=== PATIENT | male | born 1990 ===

== ENCOUNTER 2019-02-20 19:19 | Inpatient (IN) | payer SELFPAY ==
[2019-02-20 20:11] LABS: HEMOGLOBIN 15.1 g/dL (14.0-18.0); MEAN CELL VOLUME 93.8 fl (80.0-105.0); MEAN CORPUSCULAR HEMOGLOBIN 31.1 pg (25.0-35.0); MEAN CORPUSCULAR HGB CONC 33.1 g/dl (31.0-37.0); RBC 4.86 10^6/uL (3.5-6.1); RED CELL DISTRIBUTION WIDTH 15.7 % (11.5-14.5); WHITE BLOOD COUNT 11.8 10^3/uL (4.5-11.0)
[2019-02-20 20:27] LABS: ALB/GLOB RATIO 1.2 (1.1-1.8); ALBUMIN 4.4 g/dL (3.0-4.8); ALT/SGPT 90 U/L (7-56); AST/SGOT 69 U/L (17-59); BLOOD UREA NITROGEN 6 mg/dL (7-21); CALCIUM 9.7 mg/dL (8.4-10.5); GFR NON-AFRICAN AMERICAN > 60
--- NOTE | 2019-02-20 20:53 | ED PDOC ---
Arrival/HPI - General Chief Complaint: Psychiatric Evaluation Time Seen by Provider: 02/20/19 19:20 Historian: Patient - History of Present Illness Narrative History of Present Illness (Text): 02/20/19 19:50 A 28 year old male, whose past medical history includes asthma, presents to the emergency department complaining of feeling emotionally distressed over family issues and other personal issues of which the patient would not elaborate. Patient reports his neighbor knows of his issues and does not understand how they became aware of them. As per collateral information, patient states he is apparently hearing voices although he now denies any drug or alcohol abuse. Patient denies any suicidal ideation, homicidal ideation, any somatic complaints or any other complaints. No PMD Time/Duration: 24 hours Symptom Onset: Gradual Symptom Course: Unchanged Activities at Onset: Light Context: Home Past Medical History - Provider Review Nursing Documentation Reviewed: Yes - Infectious Disease Hx of Infectious Diseases: None - Cardiac Hx Cardiac Disorders: No - Pulmonary Hx Respiratory Disorders: Yes Hx Asthma: Yes - Neurological Hx Neurological Disorder: No - HEENT Hx HEENT Disorder: No - Renal Hx Renal Disorder: No - Endocrine/Metabolic Hx Endocrine Disorders: No - Hematological/Oncological Hx Blood Disorders: No - Integumentary Hx Dermatological Disorder: No - Musculoskeletal/Rheumatological Hx Musculoskeletal Disorders: No - Gastrointestinal Hx Gastrointestinal Disorders: No - Genitourinary/Gynecological Hx Genitourinary Disorders: No - Psychiatric Hx Psychophysiologic Disorder: No Hx Substance Use: No - Anesthesia Hx Anesthesia: No Family/Social History - Physician Review Nursing Documentation Reviewed: Yes Family/Social History: No Known Family HX Smoking Status: Never Smoked Hx Alcohol Use: No Hx Substance Use: No Allergies/Home Meds Allergies/Adverse Reactions: Allergies No Known Allergies Allergy (Verified 02/20/19 19:27) Home Medications: Home Meds Medication Instructions Recorded Confirmed Albuterol HFA [Ventolin HFA 90 2 puff INH DAILY 02/20/19 02/20/19 mcg/actuation (8 g)] Review of Systems - Physician Review All systems were reviewed & negative as marked: Yes - Review of Systems Psychiatric: absent: Suicidal Ideation, Other (no homocidal ideation) Physical Exam Vital Signs Reviewed: Yes Temperature: Afebrile Blood Pressure: Normal Pulse: Regular Respiratory Rate: Normal Mental Status: Positive for: Alert and Oriented X 3 - Systems Exam Head: Present: Atraumatic, Normocephalic Pupils: Present: PERRL Extroacular Muscles: Present: EOMI Conjunctiva: Present: Normal Respiratory/Chest: Present: Clear to Auscultation, Good Air Exchange. No: Respiratory Distress, Accessory Muscle Use Cardiovascular: Present: Regular Rate and Rhythm, Normal S1, S2. No: Murmurs Abdomen: No: Tenderness, Distention, Peritoneal Signs Upper Extremity: Present: Normal Inspection. No: Cyanosis, Edema Lower Extremity: Present: Normal Inspection. No: Edema Neurological: Present: GCS=15, CN II-XII Intact, Speech Normal Skin: Present: Warm, Dry, Normal Color. No: Rashes Psychiatric: Present: Alert, Oriented x 3, Other (flat affect) Medical Decision Making ED Course and Treatment: 02/20/19 19:50 Impression: 28 year old male presenting to the emergency room complaining of feeling emotionally distressed over family issues. Plan: -- EKG -- Drug screen -- Chest X-ray -- Reassess and disposition Prior Visits: Notes and results from previous visits were reviewed. Progress Notes: 02/20/19 21:07 EKG: Ordered, reviewed, and independently interpreted the EKG. Rate : 80 BPM Rhythm : NSR Interpretation : No ST-T wave changes. 02/20/19 21:11 Chest X-ray reviewed by me, shows no acute distress. 02/20/19 23:58 Patient seen and evaluated by PES/for admission psychiatry . - Lab Interpretations Lab Results: Total Bilirubin 0.5 mg/dL (0.2-1.3) 02/20/19 20:00 AST 69 U/L (17-59) H 02/20/19 20:00 ALT 90 U/L (7-56) H 02/20/19 20:00 Alkaline Phosphatase 102 U/L (38-126) 02/20/19 20:00 Total Protein 7.9 g/dL (5.8-8.3) 02/20/19 20:00 Albumin 4.4 g/dL (3.0-4.8) 02/20/19 20:00 Globulin 3.5 gm/dL 02/20/19 20:00 Albumin/Globulin Ratio 1.2 (1.1-1.8) 02/20/19 20:00 - RAD Interpretation Radiology Orders: 02/20/19 19:44 CHEST PORTABLE [RAD] Stat - Scribe Statement The provider has reviewed the documentation as recorded by the Jie Kraft All medical record entries made by the Scribe were at my direction and personally dictated by me. I have reviewed the chart and agree that the record accurately reflects my personal performance of the history, physical exam, medical decision making, and the department course for this patient. I have also personally directed, reviewed, and agree with the discharge instructions and disposition. Disposition/Present on Arrival - Present on Arrival Any Indicators Present on Arrival: No History of DVT/PE: No History of Uncontrolled Diabetes: No Urinary Catheter: No History of Decub. Ulcer: No History Surgical Site Infection Following: None - Disposition Have Diagnosis and Disposition been Completed?: Yes Diagnosis: Schizoaffective disorder Disposition: HOSPITALIZED Disposition Time: 23:58 Condition: STABLE Referrals: PCP,NO [Primary Care Provider] - Follow up with primary Forms: [employer] (Korean)
[2019-02-20 21:32] LABS: BARBITURATES, UR NEGATIVE (NEGATIVE); BENZODIAZEPINES, UR NEGATIVE (NEGATIVE); OPIATES, UR NEGATIVE (NEGATIVE); PHENCYCLIDINE, UR NEGATIVE (NEGATIVE)
[2019-02-21] MEDS ORDERED: Alum-Mag Hydrox-Simethicone Susp (30 mL) PO PRN (01:12)
[2019-02-21] MEDS ORDERED: Magnesium Hydroxide Susp 30 ml UD PO PRN (01:12)
--- NOTE | 2019-02-21 01:33 | PCM.BM ---
<Momo Roberts - Last Filed: 02/21/19 01:29> Treatment Plan Problems - Problems identified on initial assessmt Altered thought process Date Initiated: 02/21/19 Time Initiated: 01:30 Assessment reference: NA Status: Active Auditory Hallucinations Date Initiated: 02/21/19 Time Initiated: 01:30 Assessment reference: NA Status: Active Ineffective coping Date Initiated: 02/21/19 Time Initiated: 01:31 Assessment reference: NA Status: Active Treatment assets and liabiliti Patient Assests: adapts well, cooperative, educated, ADL independent, physically healthy, financial stabiity Patient Liabilities: live alone, relationship conflicts, substance abuse - Milieu Protocol Maintain good personal hygiene: daily Encourage regular showers, daily Remind patient to perform daily oral care Conduct patient checks and document Observation sheet: Q15 minutes Maintain personal safety: every shift Educate patient to report safety concerns to staff, every shift Monitor environment for contraband/sharps Medication safety: Monitor for expected outcome, potential side effects: every shift, Assess barriers to learning: every shift, Assess readiness for medication education: every shift Family Contact Family involvement: Patient does not wish Family/SO involvement Discharge/Continuing Care - Education Needs Education Needs: Family Medication, Family Diagnosis/Disease Process, Family Coping Skills, Family Anger Management skills, Family Community resources, Family Aftercare Safety Plan - Discharge Discharge Criteria: Tolerates medication w/o severe side effects, Free of paranoid thoughts, Free of agitation, Normal sleep pattern, Reduction of target symptoms Discharge to:: Home <Carol Valdivia - Last Filed: 02/21/19 14:12> - Diagnosis (1) Unspecified psychosis Status: Acute Interventions: 02/21/19 14:12 Psychoeducation/psychotherapy Psychopharmacology/adjustment of medications as needed/ monitoring possible side effects Evaluate pt on daily basis Compliance with medications and follow up appointments Long acting medication if pt is noncompliant with pill form Suicide and homicide risk assessment and prevention, coping strategies, safety plan Relapse prevention Reduction of symptoms Improve functional status Possible assertive community treatment Cognitive behavioral therapy Family involvement Possible social skill training as outpatient (2) Cannabis abuse Status: Acute Interventions: 02/21/19 14:13 Maintaining sobriety Motivational interviewing Psychoeducation <Eveline Ramsey - Last Filed: 04/03/19 17:28> Family Contact Family involvement: Family/SO is involved Family contact: Patient agrees to contact Family contact name: Elaine Day(sister) Family contacted how many times per week?: 2
[2019-02-21 02:02] VITALS: O2SAT 100
[2019-02-21 03:24] VITALS: BMI 41.1
[2019-02-21 07:19] VITALS: RESP 20
[2019-02-21 08:09] LABS: GLUCOSE,FASTING 108 mg/dL (65-110); HDL CHOLESTEROL 42 mg/dL (29-60)
[2019-02-21 08:20] LABS: LDL CHOLESTEROL 88 mg/dL (0-129)
--- NOTE | 2019-02-21 09:51 | RAD ---
Date of service: 02/20/2019 HISTORY: medical clearance COMPARISON: Are FINDINGS: LUNGS: The lungs are well inflated and clear. PLEURA: No pleural effusions or pneumothorax. CARDIOVASCULAR: The heart is normal in size. No aortic atherosclerotic calcifications present. OSSEOUS STRUCTURES: Within normal limits for the patient's age. VISUALIZED UPPER ABDOMEN: Normal. OTHER FINDINGS: None. IMPRESSION: No active pulmonary disease.
--- NOTE | 2019-02-21 14:12 | PCM.PSYCH ---
Initial Psychiatric Evaluation - Initial Psychiatric Evaluation Type of Admission: Voluntary Legal Status: Capacity Chief Complaint (in patient's own words): "My girlfriend did not want me to be her from her job, my sister wants to keep me in her house, they put these 2 things together and I thought it is weird, I went to check up on my girlfriend, 4police officers showed up and asked me did I see CRAZY BOYFRIEND, they didn't realize that they are looking for me, night before I was freaking out about my neighbours, they were talking about me, they know my personal business, they know about my sex life, they know about me, it is crazy..." Patient's Reaction to Hospitalization: Patient taken patient for evaluation and stabilization of paranoia, psychosis, inability to function. History of Present Illness and Precipitating Events: Shortly patient is a 28 year old male, with not known previous psychiatric h istory, patient has not known history of psychiatric evaluation/admissions/suicidal attempts, past medical history includes asthma, was brought in by police after patient's family called 911 stating that patient is acting rationally, paranoid, and feeling emotionally distressed emergency room patient presents to be guarded/paranoid, psychotic, patient signed for voluntary admission only because he was afraid that he would be arrested by police. Patient obviously required further evaluation and stabilization in psychiatric inpatient unit. Patient was seen and examined today at the treatment team meeting, patient presented to be suspicious, guarded and paranoid, keeps looking at his back, pa tient seems to be anxious about surroundings, pt presented with good personal hygiene, good ADLs. Based on the report from the dental sales representative, pt was guarded, refused to take medications, pt was nursing staff pt was distressed and believed that his new neighbors can hear everything they are doing in their apartment stated the"paul are very thin". Patient even stated that they can tell about their"SEXUAL" activities through the paul, feeling that his neighbours are talking about him. Patient was medications but patient refused to take any medications. In ED PES spoke to pt's sister Ms. Day, who expressed concerns that student presented as paranoid and called her last night stating that the neighbors were listening in on him and knew information about his sex life. She reported that today he told her the feds were following him and that the police and someone in [facility] is also following him. She explained that he also told her that his girlfriend is also cheating on him. She explained she is concerned because these are new behaviors. She reported that his girlfriend stated that he took a black pill last night but is unsure what that pill is. During this further evaluation patient presented to be guarded, paranoid, patient said that "everything started right after new neighbors", patient re ports that the night prior to this admission pt heard neighbours talking about him "it is very thin", patient reported that "they know everything about me, my personal life, my sex life, it is crazy" patient reported that she did not confront his neighbors, she did not initiate any fights, but was feeling "very uncomfortable, probably I need to move out from that place", patient reported yesterday he offered his girlfriend to pick her up from work but she refused, then patient said he had a dinner in his sister house "she wanted me to stay there to finish the dinner, but I thought it is suspicious..., I put two things together and I rushed to meet with my girlfriend, while I was waiting for her, 4 police officers knocked on my window asking did I see CRAZY BOYFRIEND, they did not realized that they were looking for me.." Patient presented with delusions, paranoia, circumstantial and tangential thought process. On top of the patient has very poor insight, truly believe that people are monitoring him, his girlfriend is cheating on him, neighbors talking about him through paul as well as floor. Patient reports 2 weeks ago she is causing unexpectedly at the age of 38, "we all were devastated, everybody was very depressed and sad." Patient denied ever been abused in his life. Patient reported that he smokes marijuana "very very rarely", refused to tell how often. pt reports smoking about 7 cigarettes a day. Nicotine patch was offered but patient refused. pt denied any drug use, reported that he took "black pill with an animal on "male enhance", pt reported to take the same pill three times recently "over the counter." Patient did not want to get permission to talk to his family about the reluctantly agreed to speak to the sister. It took long for the patient was signed the treatment plan. Patient refused to be on any medications, patient was crying hysterically "my life is over, I am not crazy." Patient denied thoughts of harming himself or others, denies intent or plan. This health underwriter offered patient medications, education about psychosis provided, patient was not receptive. History: Patient denied any psychiatric history, denies history of suicidal attempts. Medical history: History of asthma. Social history: Patient works, stable relationship with his girlfriend. Family history: Patient reports "all of my family are kind of off..." 02/20/19 20:00 02/20/19 20:00 Lab Results 02/21/19 07:30: TSH 3rd Generation 0.72 02/21/19 07:30: Fasting Glucose 108, Triglycerides 51, Cholesterol 141, LDL Cholesterol Direct 88, HDL Cholesterol 42 02/20/19 20:45: Urine Opiates Screen Negative, Urine Methadone Screen Negative, Ur Barbiturates Screen Negative, Ur Phencyclidine Scrn Negative, Ur Amphetamines Screen Negative, U Benzodiazepines Scrn Negative, U Oth Cocaine Metabols Negative, U Cannabinoids Screen Positive H 02/20/19 20:00: Alcohol, Quantitative < 10 02/20/19 20:00: WBC 11.8 H, RBC 4.86, Hgb 15.1, Hct 45.6, MCV 93.8, MCH 31.1, MCHC 33.1, RDW 15.7 H, Plt Count 325, MPV 10.0 02/20/19 20:00: Sodium 142, Potassium 3.6, Chloride 105, Carbon Dioxide 26, Anion Gap 15, BUN 6 L, Creatinine 0.9, Est GFR ( Amer) > 60, Est GFR (Non-Af Amer) > 60, Random Glucose 115 H, Calcium 9.7, Total Bilirubin 0.5, AST 69 H, ALT 90 H, Alkaline Phosphatase 102, Total Protein 7.9, Albumin 4.4, Globulin 3.5, Albumin/Globulin Ratio 1.2 Vital Signs Temp Pulse Pulse Resp BP Pulse Ox 02/21/19 07:18 98.7 F 116 H 20 142/92 H 02/21/19 02:01 98.5 F 71 18 130/81 100 02/21/19 01:40 71 18 02/21/19 00:25 98.2 F 77 18 132/78 98 02/21/19 00:23 98.2 F 77 18 132/78 98 02/20/19 20:45 98.3 F 72 20 130/70 100 The patient failed the outpatient lower level of care: Yes Current Medications: Active Medications Generic Name Dose Route Start Last Admin Trade Name Freq PRN Reason Stop Dose Admin Acetaminophen 650 mg 02/21/19 01:12 Tylenol 325mg Tab PO Q6H PRN Fever >100.4 F Al Hydrox/Mg Hydrox/Simethicone 30 ml 02/21/19 01:12 Maalox Plus 30 Ml PO DAILY PRN Upset Stomach Lorazepam 2 mg 02/21/19 01:12 Ativan PO Q6H PRN Anxiety Protocol Lorazepam 2 mg 02/21/19 01:13 Ativan IM Q6H PRN Anxiety Protocol Magnesium Hydroxide 30 ml 02/21/19 01:12 Milk Of Magnesia PO DAILY PRN Constipation Zaleplon 5 mg 02/21/19 01:15 Sonata PO HS PRN Insomnia Ziprasidone 20 mg 02/21/19 01:12 Geodon Cap PO Q6H PRN Agitation Protocol Ziprasidone 20 mg 02/21/19 01:14 Geodon Inj IM Q6 PRN Agitation Protocol Present on Admission - Present on Admission Any Indicators Present on Admission: No Review of Systems - Review of Systems Systems not reviewed;Unavailable: Acuity of Condition - Constitutional Constitutional: As Per HPI - EENT Eyes: As Per HPI Ears: As Per HPI Nose/Mouth/Throat: As Per HPI - Cardiovascular Cardiovascular: As Per HPI - Respiratory Respiratory: As Per HPI - Gastrointestinal Gastrointestinal: As Per HPI - Genitourinary Genitourinary: As Per HPI - Reproductive: Male Reproductive:Male: As Per HPI - Musculoskeletal Musculoskeletal: As Per HPI - Integumentary Integumentary: As Per HPI - Neurological Neurological: As Per HPI - Psychiatric Psychiatric: As Per HPI - Endocrine Endocrine: As Per HPI - Hematologic/Lymphatic Hematologic: As Per HPI Past Patient History - Past Psychiatric History Previous Treatment History: None Prior Professional Help: See HPI Prior Psychiatric Treatment: See HPI At what hospital: See HPI Duration: See HPI Nature of Treatment: See HPI Explanation of prior treatment: See HPI - PSYCHIATRIC Hx Psychophysiologic Disorder: No Hx Substance Use: Yes (marijuana) - Infectious Disease Hx of Infectious Diseases: None - CARDIAC Hx Cardiac Disorders: No - PULMONARY Hx Respiratory Disorders: Yes Hx Asthma: Yes - NEUROLOGICAL Hx Neurological Disorder: No - HEENT Hx HEENT Problems: No - RENAL Hx Chronic Kidney Disease: No - ENDOCRINE/METABOLIC Hx Endocrine Disorders: No - HEMATOLOGICAL/ONCOLOGICAL Hx Blood Disorders: No - INTEGUMENTARY Hx Dermatological Problems: No - MUSCULOSKELETAL/RHEUMATOLOGICAL Hx Musculoskeletal Disorders: No - GASTROINTESTINAL Hx Gastrointestinal Disorders: No - GENITOURINARY/GYNECOLOGICAL Hx Genitourinary Disorders: No - SURGICAL HISTORY Hx Surgeries: No - ANESTHESIA Hx Anesthesia: No - Medical/Surgical History Reviewed & confirmed: by ut Meds Allergies/Adverse Reactions: Allergies Allergy/AdvReac Type Severity Reaction Status Date / Time No Known Allergies Allergy Verified 02/21/19 01:18 Mental Status Examination - Personal Presentation Personal Presentation: Looks older than stated age - Affect Affect: Constricted (Irritable and angry), Flat - Motor Activity Motor Activity: Other (Patient presented to be on edge ) - Reliability in Providing Information Reliability in Providing Information: Fair - Speech Speech: Disorganized, Tangential - Mood Mood: Depressed, Anxious - Formal Thought Process Formal Thought Process: Hallucinations, Delusions, Paranoia, Circumstantial - Hallucinations/Delusions Delusions: Persecution - Obsessions/Compulsions Obsessions: None Compulsions: None - Cognitive Functions Orientation: Person, Place, Situation, Time Attention/Concentration: Easily distracted Estimate of Intelligence: Average Judgement: Imparied, as evidence by: Poor judgement, Imparied, as evidence by: Lack of insight into illness - Risk Risk: Diminished functioning - Strength & Assets Inventory Strength & Assets Inventory: Intelligence, Family support, Employment history, Cooperative - Limitations Limitations: Other (Psychosis, poor insight into his mental illness) Psychiatric Physical Exam - Physical Exam Reviewed and confirmed: Emergency Department Physical Exam Results - Vital Signs Recent Vital Signs: Last Vital Signs Temp 98.7 F 02/21/19 07:18 Pulse 116 H 02/21/19 07:18 Resp 20 02/21/19 07:18 BP 142/92 H 02/21/19 07:18 Pulse Ox 100 02/21/19 02:01 - Labs Result Diagrams: 02/20/19 20:00 02/20/19 20:00 Labs: Laboratory Results - last 24 hr 02/20/19 02/20/19 02/20/19 20:00 20:00 20:00 WBC 11.8 H RBC 4.86 Hgb 15.1 Hct 45.6 MCV 93.8 MCH 31.1 MCHC 33.1 RDW 15.7 H Plt Count 325 MPV 10.0 Sodium 142 Potassium 3.6 Chloride 105 Carbon Dioxide 26 Anion Gap 15 BUN 6 L Creatinine 0.9 Est GFR ( Amer) > 60 Est GFR (Non-Af Amer) > 60 Random Glucose 115 H Fasting Glucose Calcium 9.7 Total Bilirubin 0.5 AST 69 H ALT 90 H Alkaline Phosphatase 102 Total Protein 7.9 Albumin 4.4 Globulin 3.5 Albumin/Globulin Ratio 1.2 Triglycerides Cholesterol LDL Cholesterol Direct HDL Cholesterol TSH 3rd Generation Urine Opiates Screen Urine Methadone Screen Ur Barbiturates Screen Ur Phencyclidine Scrn Ur Amphetamines Screen U Benzodiazepines Scrn U Oth Cocaine Metabols U Cannabinoids Screen Alcohol, Quantitative < 10 02/20/19 02/21/19 02/21/19 20:45 07:30 07:30 WBC RBC Hgb Hct MCV MCH MCHC RDW Plt Count MPV Sodium Potassium Chloride Carbon Dioxide Anion Gap BUN Creatinine Est GFR ( Amer) Est GFR (Non-Af Amer) Random Glucose Fasting Glucose 108 Calcium Total Bilirubin AST ALT Alkaline Phosphatase Total Protein Albumin Globulin Albumin/Globulin Ratio Triglycerides 51 Cholesterol 141 LDL Cholesterol Direct 88 HDL Cholesterol 42 TSH 3rd Generation 0.72 Urine Opiates Screen Negative Urine Methadone Screen Negative Ur Barbiturates Screen Negative Ur Phencyclidine Scrn Negative Ur Amphetamines Screen Negative U Benzodiazepines Scrn Negative U Oth Cocaine Metabols Negative U Cannabinoids Screen Positive H Alcohol, Quantitative - EKG Data EKG Interpreted by: ER Physician DSM Plan - DSM 5 DSM 5 Diagnosis: Psychosis NOS Brief psychotic disorder Rule out first break of schizophrenia Substance induced psychosis Cannabis abuse Rule out major depressive disorder with psychosis - Recommended/Plan of Treatment Treatment Recommendations and Plan of Treatment: Milieu/structure/supportive therapy SW consultation for discharge plan and social issues Med management: As below 0.5 mg twice a day for psychosis So mother is needed for insomnia As needed medication Geodon plus Ativan Patient submitted 48-hour notice, requesting discharge, based on current presentation patient requires screening by [facility] for [facility] commitment Family involvement Follow up on labs Will monitor closely Pt was educated about risk/benefits and alternatives of medications, coping strategies (safety plan, suicide prevention), relapse prevention, importance of follow up with psychiatrist and therapist, stay away from drugs/alcohol/smoking Projected ELOS: 7 days Prognosis: Guarded Discharge Plan and Discharge Criteria: Patient will be less psychotic, improved insight into his mental illness, no suicidal or homicidal ideations, will be able to function - Tobacco Cessation Tobacco Use Status for the last 30 days: Heavy User(>=5 cigs &/or cigars/pipes daily) Tobacco Use Treatment Practical Counseling Provided: No Reason for not providing: Patient refused tobacco cessation medication - Alcohol or Substance Abuse Does the patient have an Alcohol or Substance Abuse Disorder: Yes Initial Psych Certification - Initial Certification I certify that the inpatient psychiatric facility admission was medically necessary for either: Treatment which could reasonbly be expected to improve pt's condition I estimate of hospitalization is necessary for proper treatment of the patient: 7 Unit of Time: Days My plans for post-hospital care for this patient are: Follow-up with psychiatrist, therapist, medication management.
[2019-02-21 16:51] LABS: URINE APPEARANCE CLEAR (CLEAR); URINE BILIRUBIN NEGATIVE (NEGATIVE); URINE BLOOD NEGATIVE (NEGATIVE); URINE COLOR LIGHT YELLOW (YELLOW); URINE GLUCOSE (UA) NEGATIVE (NEGATIVE); URINE LEUKOCYTE ESTERASE NEGATIVE Leu/uL (NEGATIVE); URINE PROTEIN NEGATIVE mg/dL (<30 mg/dL); URINE UROBILINOGEN 0.2 E.U./dL (<1 E.U./dL)
--- NOTE | 2019-02-21 22:39 | CARD ---
APPROVED REPORT Date of service: 02/20/2019 EKG Measurement Heart [id number] <Conclusion> Normal sinus rhythm with sinus arrhythmia Moderate voltage criteria for LVH, may be normal variant ST abnormalities- minor Abnormal ECG
--- NOTE | 2019-02-22 15:25 | PCM.PYCHPN ---
Psychiatric Progress Note - Psychiatric Progress Note Patient seen today, length of contact: 45min Patient Chief Complaint: "I found out that my girlfriend cheating on me, I heard my coworkers were talking to me from the closet..." Problems Identified/Issues Discussed: Patient was educated on regulations, about his right distal next 48-hour notice, about to [facility] screening process, patient also was educated about risk, benefits, alternatives of all medications, education about psychosis, necessity of staying in the hospital and complete the treatment. Medical Problems: Patient has history of asthma. Diagnostic Results: 02/20/19 20:00 02/20/19 20:00 Lab Results 02/21/19 16:38: Urine Color Light yellow, Urine Appearance Clear, Urine pH 6.0, Ur Specific [place] <= 1.005, Urine Protein Negative, Urine Glucose (UA) Negative, Urine Ketones 40 H, Urine Blood Negative, Urine Nitrate Negative, Urine Bilirubin Negative, Urine Urobilinogen 0.2, Ur Leukocyte Esterase Negative 02/21/19 07:30: RPR Nonreactive 02/21/19 07:30: TSH 3rd Generation 0.72 02/21/19 07:30: Fasting Glucose 108, Triglycerides 51, Cholesterol 141, LDL Cholesterol Direct 88, HDL Cholesterol 42 02/20/19 20:45: Urine Opiates Screen Negative, Urine Methadone Screen Negative, Ur Barbiturates Screen Negative, Ur Phencyclidine Scrn Negative, Ur Amphetamines Screen Negative, U Benzodiazepines Scrn Negative, U Oth Cocaine Metabols Negative, U Cannabinoids Screen Positive H 02/20/19 20:00: Alcohol, Quantitative < 10 02/20/19 20:00: WBC 11.8 H, RBC 4.86, Hgb 15.1, Hct 45.6, MCV 93.8, MCH 31.1, MCHC 33.1, RDW 15.7 H, Plt Count 325, MPV 10.0 02/20/19 20:00: Sodium 142, Potassium 3.6, Chloride 105, Carbon Dioxide 26, Anion Gap 15, BUN 6 L, Creatinine 0.9, Est GFR ( Amer) > 60, Est GFR (Non-Af Amer) > 60, Random Glucose 115 H, Calcium 9.7, Total Bilirubin 0.5, AST 69 H, ALT 90 H, Alkaline Phosphatase 102, Total Protein 7.9, Albumin 4.4, Globulin 3.5, Albumin/Globulin Ratio 1.2 Vital Signs Temp Pulse Pulse Resp BP Pulse Ox 02/22/19 07:15 98.1 F 92 H 20 137/90 02/21/19 15:00 76 131/88 02/21/19 07:18 98.7 F 116 H 20 142/92 H 02/21/19 02:01 98.5 F 71 18 130/81 100 02/21/19 01:40 71 18 02/21/19 00:25 98.2 F 77 18 132/78 98 02/21/19 00:23 98.2 F 77 18 132/78 98 02/20/19 20:45 98.3 F 72 20 130/70 100 DSM 5 Symptoms Update: Shortly patient is a 28 year old male, with not known previous psychiatric history, patient has not known history of psychiatric evaluation/admissi ons/suicidal attempts, past medical history includes asthma, was brought in by police after patient's family called 911 stating that patient is acting rationally, paranoid, and feeling emotionally distressed emergency room patient presents to be guarded/paranoid, psychotic, patient signed for voluntary admission only because he was afraid that he would be arrested by police. Patient obviously required further evaluation and stabilization in psychiatric inpatient unit. Patient submitted 48-hour notice 02/21 2019, [facility] is [facility] was initiated, screen michel found patient today and not committable, at the same time screen there and did not have a chance to reach out for family because family did not pick up and delivery driver phone. Based on reports from the nursing staff patient is still paranoid, acting on his paranoia, while Dr. Aggarwal was in the treatment team meeting with other patient, was convinced that the treatment team was about him and people are talking badly about the same. Based on mental health worker collateral information during visit there is hours yesterday 02/21/2019, patient was in distress, saying that he is hearing voices from the closet, patient is convinced that his girlfriend is cheating on him, there is no evidence for that. Earlier today patient was threatening to call joinery machinist and that this publicity writer is obligated to discharge him as fast as possible. This publicity writer contacted patient's sister Elaine, patient gave written consent, cell phone #[phone]. As per Elaine patient was paranoid yesterday, pt was convinced that people are after him, pt also was hearing voices, pt's sister does not fill pt is in right stage of mind now. Patient was seen today at the treatment team meeting room with associate director finance, mental health worker, this publicity writer. After detailed explanation of treatment plan, medication offered, risk/benefits/alternatives of the medication discussed in details. patient also was educated about second screening, patient agreed to stay in the hospital and complete the treatment. Patient rescinded 48-hour notice, will include staying in the hospital for further observation, stabilization, medication management. As per nursing report patient start taking medications, compliant with unit rules and regulations. 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 Mental Status Examination - Cognitive Function Orientation: Person, Place, Situation, Time Memory: Intact Attention: Poor Concentration: Poor Association: Loose Fund of Knowledge: WNL - Mood Mood: Depressed, Anxious - Affect Affect: Constricted (Irritable and angry), Flat - Formal Thought Process Formal Thought Process: Hallucinations, Delusions, Paranoia, Loosening of associations, Circumstantial - Suicidal Ideation Suicidal Ideation: No - Homicidal Ideation Homicidal Ideation: No Goal/Treatment Plan - Goal/Treatment Plan Need for Continued Stay: Remain at risks for inpatient hospitalization, Severe depression anxiety, Discharge may exacerbated symptoms, Severe functional impairment Progress Toward Problem(s) and Goals/Treatment Plan: Milieu/structure/supportive therapy SW consultation for discharge plan and social issues Med management: Risperdal 0.5 mg 3 times a day for psychosis Cogentin 0.5 mg twice a day for EPS sonata 5mg po as needed for insomnia As needed medication Geodon plus Ativan Patient rescinded 48-hour notice, willing to stay in the hospital Family involvement Follow up on labs Will monitor closely Pt was educated about risk/benefits and alternatives of medications, coping strategies (safety plan, suicide prevention), relapse prevention, importance of follow up with psychiatrist and therapist, stay away from drugs/alcohol/smoking Estimated Date of D/C: 03/01/19
--- NOTE | 2019-02-23 14:34 | PCM.PYCHPN ---
Psychiatric Progress Note - Psychiatric Progress Note Patient seen today, length of contact: 45min Patient Chief Complaint: "I know that I am right, what I need to do in order to prove you that you need to let me go...?" Problems Identified/Issues Discussed: Patient was educated about unit rules and regulations, about his right to submit 48-hour notice, about to [facility] screening process, patient also was educated about risk, benefits, alternatives of all medications, education about psychosis, necessity of staying in the hospital and complete the treatment. Medical Problems: Patient has history of asthma. Diagnostic Results: 02/20/19 20:00 02/20/19 20:00 Lab Results 02/21/19 16:38: Urine Color Light yellow, Urine Appearance Clear, Urine pH 6.0, Ur Specific [place] <= 1.005, Urine Protein Negative, Urine Glucose (UA) Negative, Urine Ketones 40 H, Urine Blood Negative, Urine Nitrate Negative, Urine Bilirubin Negative, Urine Urobilinogen 0.2, Ur Leukocyte Esterase Negative 02/21/19 07:30: RPR Nonreactive 02/21/19 07:30: TSH 3rd Generation 0.72 02/21/19 07:30: Fasting Glucose 108, Triglycerides 51, Cholesterol 141, LDL Cholesterol Direct 88, HDL Cholesterol 42 02/20/19 20:45: Urine Opiates Screen Negative, Urine Methadone Screen Negative, Ur Barbiturates Screen Negative, Ur Phencyclidine Scrn Negative, Ur Amphetamines Screen Negative, U Benzodiazepines Scrn Negative, U Oth Cocaine Metabols Negative, U Cannabinoids Screen Positive H 02/20/19 20:00: Alcohol, Quantitative < 10 02/20/19 20:00: WBC 11.8 H, RBC 4.86, Hgb 15.1, Hct 45.6, MCV 93.8, MCH 31.1, MCHC 33.1, RDW 15.7 H, Plt Count 325, MPV 10.0 02/20/19 20:00: Sodium 142, Potassium 3.6, Chloride 105, Carbon Dioxide 26, Anion Gap 15, BUN 6 L, Creatinine 0.9, Est GFR ( Amer) > 60, Est GFR (Non-Af Amer) > 60, Random Glucose 115 H, Calcium 9.7, Total Bilirubin 0.5, AST 69 H, ALT 90 H, Alkaline Phosphatase 102, Total Protein 7.9, Albumin 4.4, Globulin 3.5, Albumin/Globulin Ratio 1.2 Vital Signs Temp Pulse Pulse Resp BP Pulse Ox 02/22/19 07:15 98.1 F 92 H 20 137/90 02/21/19 15:00 76 131/88 02/21/19 07:18 98.7 F 116 H 20 142/92 H 02/21/19 02:01 98.5 F 71 18 130/81 100 02/21/19 01:40 71 18 02/21/19 00:25 98.2 F 77 18 132/78 98 02/21/19 00:23 98.2 F 77 18 132/78 98 02/20/19 20:45 98.3 F 72 20 130/70 100 DSM 5 Symptoms Update: Shortly patient is a 28 year old male, with not known previous psychiatric history, patient has not known history of psychiatric evaluation/ad missions/suicidal attempts, past medical history includes asthma, was brought in by police after patient's family called 911 stating that patient is acting rationally, paranoid, and feeling emotionally distressed emergency room patient presents to be guarded/paranoid, psychotic, patient signed for voluntary admission only because he was afraid that he would be arrested by police. Patient obviously required further evaluation and stabilization in psychiatric inpatient unit. Patient submitted 48-hour notice 02/21/2019, [facility] screening process was initiated, screener found patient not committable, at the same time screener did not reached out for family because family did not strip picker phone. Patient rescinded 48 hr notice only because he did not want to be transferred to [facility] (formerly [facility] Patient was compliant with the medication for the past 24 hours. Patient was seen today at the treatment team meeting, patient presented the same way, patient is delusional, paranoid, patient has very poor insight into psychosis, convinced that his girlfriend was cheating on him (no evidence for that), patient also was convinced that she passed underwear which belongs to her new lover (no evidence patient tolerated his medications well, no side effects that, moreover pt's sisters brought clothing and underwear yesterday, pt still convinced that he was able to hear voices of his neighbours talking about his sex life. Yesterday patient was threatening to call chief dispatcher service and that this senior writer is obligated to discharge him as fast as possible. This senior writer contacted patient's sister Elaine02/22/19, patient gave written consent, cell phone #[phone]. As per Elaine patient was paranoid, pt was convinced that people are after him, pt also was hearing voices, pt's sister does not fill pt is in right stage of mind now. As per nursing report patient start taking medications, compliant with unit rules and regulations. So far patient tolerates medications well, no side effects observed or reported, claims 0, no EPS. Impression: Psychosis NOS Brief psychotic disorder Late onset of schizophrenia Substance induced psychosis Marijuana abuse Major depressive disorder with psychosis Medication Change: Yes (Risperdal increased) Medical Record Reviewed: Yes Consults ordered or reviewed: Patient is healthy, was seen by medical team in the emergency room. Mental Status Examination - Cognitive Function Orientation: Person, Place, Situation, Time Memory: Intact Attention: Poor Concentration: Poor Association: Loose Fund of Knowledge: WNL - Mood Mood: Depressed, Anxious - Affect Affect: Constricted (Irritable and angry), Flat - Formal Thought Process Formal Thought Process: Hallucinations, Delusions, Paranoia, Loosening of associations, Circumstantial - Suicidal Ideation Suicidal Ideation: No - Homicidal Ideation Homicidal Ideation: No Goal/Treatment Plan - Goal/Treatment Plan Need for Continued Stay: Remain at risks for inpatient hospitalization, Severe depression anxiety, Discharge may exacerbated symptoms, Severe functional impairment Progress Toward Problem(s) and Goals/Treatment Plan: Milieu/structure/supportive therapy SW consultation for discharge plan and social issues Med management: Risperdal 1mg two times a day for psychosis Cogentin 0.5 mg twice a day for EPS sonata 5mg po as needed for insomnia As needed medication Geodon plus Ativan Patient rescinded 48-hour notice, willing to stay in the hospital Family involvement Follow up on labs Will monitor closely Pt was educated about risk/benefits and alternatives of medications, coping strategies (safety plan, suicide prevention), relapse prevention, importance of follow up with psychiatrist and therapist, stay away from drugs/alcohol/smoking Estimated Date of D/C: 03/01/19
--- NOTE | 2019-02-24 10:24 | PCM.PYCHPN ---
Psychiatric Progress Note - Psychiatric Progress Note Patient seen today, length of contact: 45min Problems Identified/Issues Discussed: I reviewed assessment and recent notes. Patient was interviewed at bedside. He appears oddly related, guarded and preoccupied. Patient is superficially coope rative with my questioning and reports that he is feeling "a little better". Patient denies any side effects, discomfort or pain at this time. Reluctant to fully engage in an interview about his symptoms and recent reports indicate that he has been paranoid and delusional. Staff notes indicate he has been more cooperative on the unit and taking his medications. Appears more interactive and attending groups. Focus and paranoia also appear to be improving recently. There were no behavioral issues overnight. Diagnostic Results: Psychosis NOS Brief psychotic disorder Late onset of schizophrenia Substance induced psychosis Marijuana abuse Major depressive disorder with psychosis Medication Change: Yes (Risperdal increased) Medical Record Reviewed: Yes Mental Status Examination - Cognitive Function Orientation: Person, Place, Situation, Time Memory: Intact Attention: WNL Concentration: Poor Association: Loose Fund of Knowledge: WNL - Mood Mood: Depressed, Anxious - Affect Affect: Constricted (Irritable and angry), Flat - Formal Thought Process Formal Thought Process: Hallucinations (denied), Delusions, Paranoia (some improvement), Loosening of associations, Circumstantial - Suicidal Ideation Suicidal Ideation: No - Homicidal Ideation Homicidal Ideation: No Goal/Treatment Plan - Goal/Treatment Plan Need for Continued Stay: Remain at risks for inpatient hospitalization, Severe depression anxiety, Discharge may exacerbated symptoms, Severe functional impairment Progress Toward Problem(s) and Goals/Treatment Plan: * c/w current tx and plan * No new weekend labs thus far * Vitals reviewed and noted below: Selected Entries 02/23/19 02/23/19 07:28 16:00 Temperature 98.3 F Pulse Rate 109 H 85 Respiratory 20 Rate Blood Pressure 124/69 119/71 Estimated Date of D/C: 03/01/19
--- NOTE | 2019-02-25 09:16 | PCM.PYCHPN ---
Psychiatric Progress Note - Psychiatric Progress Note Patient seen today, length of contact: 30min Problems Identified/Issues Discussed: I reviewed recent notes and patient was interviewed at bedside. He appears more animated and related this morning. Smiles at times during our interview. Comm unication is clearer and more goal directed. Continues to report that he is feeling a little better since admission. He denies perceptual disturbance whenever I ask him about his symptoms however he has been paranoid and delusional on the unit. He received geodon 20 mg po on Tuesday after he complained of racing thoughts and belief that someone was watching him..Affect is preoccupied and a little anxious. Patient denies any side effects, discomfort or pain at this time. Reports that he is sleeping well. Staff notes indicate he has been more cooperative on the unit and taking his medications. Appears more interactive and attending groups. Focus and paranoia also appear to be improving recently. There were no behavioral issues over the weekend. Diagnostic Results: Psychosis NOS Brief psychotic disorder Late onset of schizophrenia Substance induced psychosis Marijuana abuse Major depressive disorder with psychosis Medication Change: Yes (increased risperdal) Medical Record Reviewed: Yes Mental Status Examination - Cognitive Function Orientation: Person, Place, Situation, Time Memory: Intact Attention: WNL Concentration: Poor Association: Loose Fund of Knowledge: WNL - Mood Mood: Depressed, Anxious - Affect Affect: Constricted (Irritable and angry), Flat - Formal Thought Process Formal Thought Process: Hallucinations (denied), Delusions, Paranoia (some improvement), Loosening of associations (improvement), Circumstantial - Suicidal Ideation Suicidal Ideation: No - Homicidal Ideation Homicidal Ideation: No Goal/Treatment Plan - Goal/Treatment Plan Need for Continued Stay: Remain at risks for inpatient hospitalization, Severe depression anxiety, Discharge may exacerbated symptoms, Severe functional impairment Progress Toward Problem(s) and Goals/Treatment Plan: * c/w current tx and plan * Risperdal increased to 1 mg qAM and 2 mg qhs on 02/25/19 for paranoia and delusions * No new weekend labs * Vitals reviewed and noted below: Selected Entries 02/23/19 02/23/19 02/24/19 07:28 16:00 15:47 Temperature 98.3 F Pulse Rate 109 H 85 127 H Respiratory 20 Rate Blood Pressure 124/69 119/71 128/73 Estimated Date of D/C: 03/01/19
[2019-02-25 16:20] VITALS: BP 121/73
[2019-02-26] MEDS ORDERED: Albuterol-Ipratrop 3 mg / 0.5 (3 ml) UD IH PRN (00:14)
--- NOTE | 2019-02-26 00:22 | CP.PCM.PN ---
<Humberto Valero - Last Filed: 02/26/19 00:15> Subjective - Date & Time of Evaluation Date of Evaluation: 02/26/19 Time of Evaluation: 00:00 - Subjective Subjective: House doctor note: Received a call from nursing staff regarding patient having chest pain. Patient states the pain started a few days ago and is located in his R and L side of the chest. Denies any shortness of breath or palpitations. Patient does admit to being very anxious. No other complaints. VS: Reviewed stable PE: Heart: RRR, S1 &S2, mild tenderness to palpation of chest wall in R and L side Lung: CTA b/l, no wheezes Plan: Chest pain likely 2/2 to his anxiety or costochondritis. CBC, CMP, Troponin EKG stat Duonebs PRN Will cont to monitor for any changes. Objective - Vital Signs/Intake and Output Vital Signs (last 24 hours): Temp Pulse Resp BP Pulse Ox 97.9 F 97 H 20 121/73 100 02/25/19 06:48 02/25/19 16:19 02/25/19 06:48 02/25/19 16:19 02/21/19 02:01 - Medications Medications: Current Medications Acetaminophen (Tylenol 325mg Tab) 650 mg PO Q6H PRN PRN Reason: Fever >100.4 F Al Hydrox/Mg Hydrox/Simethicone (Maalox Plus 30 Ml) 30 ml PO DAILY PRN PRN Reason: Upset Stomach Albuterol/Ipratropium (Duoneb 3 Mg/0.5 Mg (3 Ml) Ud) 3 ml IH [id number] PRN PRN Reason: Shortness of Breath Benztropine Mesylate (Cogentin) 0.5 mg PO [facility] Last Admin: 02/25/19 22:19 Dose: 0.5 mg Lorazepam (Ativan) 2 mg PO Q6H PRN; Protocol PRN Reason: Anxiety Last Admin: 02/25/19 22:19 Dose: 2 mg Lorazepam (Ativan) 2 mg IM Q6H PRN; Protocol PRN Reason: Anxiety Magnesium Hydroxide (Milk Of Magnesia) 30 ml PO DAILY PRN PRN Reason: Constipation [facility] ([facility]dal Tab) [facility]; Protocol Last Admin: 02/25/19 10:59 Dose: 1 mg Risperidone (Risperdal Tab) 2 mg PO HS SUSSY; Protocol Last Admin: 02/25/19 22:20 Dose: 2 mg Zaleplon (Sonata) 5 mg PO HS PRN PRN Reason: Insomnia Last Admin: 02/24/19 21:55 Dose: 5 mg Ziprasidone (Geodon Cap) 20 mg PO Q6H PRN; Protocol PRN Reason: Agitation Last Admin: 02/25/19 22:19 Dose: 20 mg Ziprasidone (Geodon Inj) 20 mg IM Q6 PRN; Protocol PRN Reason: Agitation - Labs Labs: 02/20/19 20:00 02/20/19 20:00 <Curtis Shafer - Last Filed: 02/26/19 02:23> Objective - Vital Signs/Intake and Output Vital Signs (last 24 hours): Temp Pulse Resp BP Pulse Ox 97.9 F 97 H 20 121/73 100 02/25/19 06:48 02/26/19 00:35 02/25/19 06:48 02/25/19 16:19 02/21/19 02:01 - Medications Medications: Current Medications Acetaminophen (Tylenol 325mg Tab) 650 mg PO Q6H PRN PRN Reason: Fever >100.4 F Al Hydrox/Mg Hydrox/Simethicone (Maalox Plus 30 Ml) 30 ml PO DAILY PRN PRN Reason: Upset Stomach Albuterol/Ipratropium (Duoneb 3 Mg/0.5 Mg (3 Ml) Ud) 3 ml IH [id number] PRN PRN Reason: Shortness of Breath Last Admin: 02/26/19 00:35 Dose: 3 ml Benztropine Mesylate (Cogentin) 0.5 mg PO AMHS SUSSY Last Admin: 02/25/19 22:19 Dose: 0.5 mg Lorazepam (Ativan) 2 mg PO Q6H PRN; Protocol PRN Reason: Anxiety Last Admin: 02/25/19 22:19 Dose: 2 mg Lorazepam (Ativan) 2 mg IM Q6H PRN; Protocol PRN Reason: Anxiety Magnesium Hydroxide (Milk Of Magnesia) 30 ml PO DAILY PRN PRN Reason: Constipation Risperidone (Risperdal Tab) 1 mg PO QAM SUSSY; Protocol Last Admin: 02/25/19 10:59 Dose: 1 mg Risperidone (Risperdal Tab) 2 mg PO HS SUSSY; Protocol Last Admin: 02/25/19 22:20 Dose: 2 mg Zaleplon (Sonata) 5 mg PO HS PRN PRN Reason: Insomnia Last Admin: 02/24/19 21:55 Dose: 5 mg Ziprasidone (Geodon Cap) 20 mg PO Q6H PRN; Protocol PRN Reason: Agitation Last Admin: 02/25/19 22:19 Dose: 20 mg Ziprasidone (Geodon Inj) 20 mg IM Q6 PRN; Protocol PRN Reason: Agitation - Labs Labs: 02/26/19 00:35 02/26/19 00:35 Attending/Attestation - Attestation I have personally seen and examined this patient.: No I have fully participated in the care of the patient.: No I have reviewed all pertinent clinical information, including history, physical exam and plan: No
[2019-02-26 00:58] LABS: BASO # 0.03 K/mm3 (0.0-2.0); BASO % 0.3 % (0.0-3.0); EOS # 0.2 (0.0-0.7); EOS % 2.1 % (1.5-5.0); HEMOGLOBIN 14.2 g/dL (14.0-18.0); LYMPH # 2.6 (1.2-3.4); LYMPH % 25.7 % (22.0-35.0); MEAN CELL VOLUME 93.7 fl (80.0-105.0); MEAN CORPUSCULAR HEMOGLOBIN 30.8 pg (25.0-35.0); MEAN CORPUSCULAR HGB CONC 32.9 g/dl (31.0-37.0); MEAN PLATELET VOLUME 9.8 fl (7.0-11.0); MONO # 0.7 (0.1-0.6); MONO % 7.4 % (1.0-6.0); RBC 4.61 10^6/uL (3.5-6.1); RED CELL DISTRIBUTION WIDTH 15.4 % (11.5-14.5); WHITE BLOOD COUNT 9.9 10^3/uL (4.5-11.0)
[2019-02-26 01:17] LABS: TROPONIN I < 0.01 ng/mL
[2019-02-26 01:42] LABS: ALB/GLOB RATIO 1.5 (1.1-1.8); ALBUMIN 4.6 g/dL (3.0-4.8); ALT/SGPT 159 U/L (7-56); AST/SGOT 71 U/L (17-59); BLOOD UREA NITROGEN 13 mg/dL (7-21); CALCIUM 9.4 mg/dL (8.4-10.5); GFR NON-AFRICAN AMERICAN > 60
[2019-02-26 07:14] VITALS: PULSE 102; TEMP 97.7
--- NOTE | 2019-02-26 16:05 | CARD ---
APPROVED REPORT Date of service: 02/26/2019 EKG Measurement Heart [id number] <Conclusion> Normal sinus rhythm Normal ECG
--- NOTE | 2019-02-27 10:00 | PCM.PYCHDC ---
Mental Status Examination - Mental Status Examination Orientation: Person, Place, Situation, Time Memory: Intact Mood: Neutral Affect: Constricted (But more reactive) Speech: Appropriate Attention: WNL (Much improved) Concentration: WNL (Much improved) Association: Loose (But much improved) Fund of Knowledge: WNL Formal Thought Process: Delusions (Residual, but much improved), Paranoia (Residual, but much improved) Description of patient's judgement and insight: Patient has limited insight into his mental illness and psychosis, but patient was compliant with medications and unit rules and regulations, attending groups, dissipated in the unit activators, patient seems to be appreciated for staff, no agitation, no aggression. Psychotic Thoughts and Behaviors: Patient is still has residual paranoia and delusions, but overall patient i mproved significantly. Patient is more social, participate in unit activities, thought process is more organized and goal directed. Suicidal Ideation: No Current Homicidal Ideation?: No Plan: Patient denied thoughts of harming himself or others, denied intent, plan. Discharge Summary - Discharge Note Reason for Hospitalization: Patient taken patient for evaluation and stabilization of paranoia, psychosis, inability to function. Please see admission note for detailed information. Psychiatric History (includes Medical, Family, Personal Hx): collateral(family)patient had periods of suspiciousness/paranoia in past Laboratory Data: 02/26/19 00:35 02/26/19 00:35 Lab Results 02/26/19 00:35: Sodium 139, Potassium 4.4, Chloride 104, Carbon Dioxide 24, Anion Gap 16, BUN 13, Creatinine 1.0, Est GFR ( Amer) > 60, Est GFR (Non- Af Amer) > 60, Random Glucose 99, Calcium 9.4, Total Bilirubin 0.5, AST 71 H, ALT 159 H, Alkaline Phosphatase 93, Troponin I < 0.01, Total Protein 7.7, Albumin 4.6, Globulin 3.1, Albumin/Globulin Ratio 1.5 02/26/19 00:35: WBC 9.9, RBC 4.61, Hgb 14.2, Hct 43.2, MCV 93.7, MCH 30.8, MCHC 32.9, RDW 15.4 H, Plt Count 289, MPV 9.8, Neut % (Auto) 64.5, Lymph % (Auto) 25.7, Saline % (Auto) 7.4 H, Eos % (Auto) 2.1, Baso % (Auto) 0.3, Lymph # (Auto) 2.6, Saline # (Auto) 0.7 H, Eos # (Auto) 0.2, Baso # (Auto) 0.03, Absolute Neuts (auto) 6.41 02/21/19 16:38: Urine Color Light yellow, Urine Appearance Clear, Urine pH 6.0, Ur Specific [place] <= 1.005, Urine Protein Negative, Urine Glucose (UA) Negative, Urine Ketones 40 H, Urine Blood Negative, Urine Nitrate Negative, Urine Bilirubin Negative, Urine Urobilinogen 0.2, Ur Leukocyte Esterase Negative 02/21/19 07:30: RPR Nonreactive 02/21/19 07:30: TSH 3rd Generation 0.72 02/21/19 07:30: Fasting Glucose 108, Triglycerides 51, Cholesterol 141, LDL Cholesterol Direct 88, HDL Cholesterol 42 02/20/19 20:45: Urine Opiates Screen Negative, Urine Methadone Screen Negative, Ur Barbiturates Screen Negative, Ur Phencyclidine Scrn Negative, Ur Amphetamines Screen Negative, U Benzodiazepines Scrn Negative, U Oth Cocaine Metabols Negativ e, U Cannabinoids Screen Positive H 02/20/19 20:00: Alcohol, Quantitative < 10 02/20/19 20:00: WBC 11.8 H, RBC 4.86, Hgb 15.1, Hct 45.6, MCV 93.8, MCH 31.1, MCHC 33.1, RDW 15.7 H, Plt Count 325, MPV 10.0 02/20/19 20:00: Sodium 142, Potassium 3.6, Chloride 105, Carbon Dioxide 26, Anion Gap 15, BUN 6 L, Creatinine 0.9, Est GFR ( Amer) > 60, Est GFR (Non-Af Amer) > 60, Random Glucose 115 H, Calcium 9.7, Total Bilirubin 0.5, AST 69 H, ALT 90 H, Alkaline Phosphatase 102, Total Protein 7.9, Albumin 4.4, Globulin 3.5, Albumin/Globulin Ratio 1.2 Vital Signs Temp Pulse Pulse Resp BP Pulse Ox 02/26/19 07:13 97.7 F 102 H 20 02/26/19 00:35 97 H 02/25/19 16:19 97 H 121/73 02/25/19 06:48 97.9 F 90 20 129/92 H 02/24/19 15:47 127 H 128/73 02/23/19 16:00 85 119/71 02/23/19 07:28 98.3 F 109 H 20 124/69 02/22/19 16:00 87 115/79 02/22/19 07:15 98.1 F 92 H 20 137/90 02/21/19 15:00 76 131/88 02/21/19 07:18 98.7 F 116 H 20 142/92 H 02/21/19 02:01 98.5 F 71 18 130/81 100 02/21/19 01:40 71 18 02/21/19 00:25 98.2 F 77 18 132/78 98 02/21/19 00:23 98.2 F 77 18 132/78 98 02/20/19 20:45 98.3 F 72 20 130/70 100 Consultations:: List each consultation separately and include: 1. Reason for request. 2. Findings. 3. Follow-up Consultations: Patient is healthy, was seen by medical team in the emergency room. Patient was seen by medical team for over the week for evaluation of chest pain, from the medical expertise most likely chest pain was related to anxiety or costochondritis. Summary of Hospital Course include:: 1. Description of specific treatment plan utilized for patients during their course of treatmen. 2. Summarize the time- course for resolution of acute symptoms and/or regressed behaviors. 3. Describe issues identified and worked on during hospitalization. 4. Describe medication utilized. 5. Describe medical problems identified and treated. 6. Reassessment of suicide risk Summary of Hospital Course: Shortly patient is a 28 year old male, with not known previous psychiatric history, patient has not known history of psychiatric evaluation/admissions/suicidal attempts, past medical history includes asthma, was brought in by police after patient's family called 911 stating that patient is acting rationally, paranoid, and feeling emotionally distressed emergency room patient presents to be guarded/paranoid, psychotic, patient signed for voluntary admission only because he was afraid that he would be arrested by police. [facility] obviously [facility]. at the time of the initial assessment by this administrative underwriter patient presented to be suspicious, guarded and paranoid, keeps looking at his back, patient seems to be anxious about surroundings. Based on the report from the shift supervisor melting, pt was guarded, refused to take medications, pt was nursing staff pt was distressed and believed that his new neighbors can hear everything they are doing in their apartment stated the"paul are very thin". Patient even stated that they can tell about their"SEXUAL" activities through the paul, feeling that his neighbours are talking about him. Patient was medications but patient refused to take any medications. initially pt was refusing to take any medications, was paranoid, was refusing to eat the food pt's family was bringing to him. pt then submitted 48hr notice, requesting discharge, pt was screened by [facility] for involuntary commitment, but was found to be not in danger to self or others. this administrative underwriter had prolonged discussion with pt's family, family felt pt is not ready for being discharged, then this administrative underwriter, architectural administrative assistant , mental Health Worker had a meeting with pt and pt was educated again about psychosis, treatment plan, medications risk/benefits and alternatives, pt rescinded his 48hr notice, decided to stay in the hospital and complete his treatment. Patient made it clear that he wanted to stay in the hospital only because he did not want to be screened again. pt was initiated on Risperdal, which was slowly titrated to 2mg po bid for psychosis and mood stabilization Cogentin 0.5mg bid for EPS Sonata 5mg po hs for insomnia pt tolerated medications well, no side effects observed or reported, pt has some improvement with his psychotic symptoms, pt was not agitated, pt was participating in unit activities, pt also was compliant with all offered treatment, group therapy, medication management, pt also allowed this administrative underwriter to discuss treatment plan with his sisters including Ngoc Day and Elaine Day, who seems to be very supportive and involved into pt's life. Over the weekend pt was compliant with medications, unit rules and regulations, but still has residual psychosis. pt was feeling that his food was smells like Lysol, also pt was mildly disorganized, was saying that he needs to go to police in order to check his chest pain, pt was much calmer when medical team evaluated pt. 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 pt reported that he will stay with his sister Ngoc, as per report she was the one who called 911. this administrative underwriter asked if pt feels angry towards her, pt said "absolutely not, she is like mother #2 for me, she wants all the best for me, I know why she called 911, I was angry..., but not anymore. this administrative underwriter advised pt to stay in the hospital and complete his treatment, but pt refused, wanted to be d/c AMA. Pt does not meet criteria for [facility] screening at this point. BRENT and this administrative underwriter contacted pt's sister Ngoc Day [phone], who initiated this admission by calling 911. as per Ngoc and her family who visited pt over the weekend daily, pt has improved, "he is much calmer, he is eating, not angry, he also sleeps and seems to be more relaxed", this administrative underwriter asked if pt verbalized any threats towards her or his ex-girlfriend, Ngoc said that at the beginning of this admission pt was "annoyed with me", but now "he hugs and kisses me when I came over the weekend, I do not feel that he is angry or something" PT's sister does not believe patient is a threat to himself or others. Ngoc confirmed that patient will stay with her. This administrative underwriter discussed patient's treatment progress, recommendation for patient to remain hospitalized, as well as psychosis. Ngoc wanted to contact other sister and their mother in order to discuss d/c plan and find out about any concerns other family members have and get back to BRENT or this administrative underwriter. Ngoc called SW back, reporting that other family members have no concerns about pt's safety, and family would pick pt up at 4pm. at this point this administrative underwriter has no other choice other than discharge pt AMA, pt had a capacity to do so. At the time of the discharge patient was considered to pose NO imminent danger to self or others, will be following up at [facility] with , information about follow up appointment, time and address provided to the pt, (s ee BRENT note for more detailed information). It is a patient responsibility to follow up with outpatient clinic, PMD as well as specialists In case patient will need to obtain results of studies pending at discharge, patient was provided with contact information of Psychiatric Inpatient unit [phone] as well as Medical Record Department [phone], as well as [facility] team [phone]. pt denied smoking, denied drinking alcohol pt was advised to stop using marijuana and do not take any male enhance pills pt was provided with medications (meds to bed see medication reconciliation form) Pt was educated about safety plan in case of worsening of symptoms or in case of suicidal or homicidal ideation call 911 or go to the nearest ER, also was educated to take meds as prescribed and stay away from drugs, pt verbalized understanding. 02/20/19 20:00 02/20/19 20:00 Lab Results 02/21/19 07:30: TSH 3rd Generation 0.72 02/21/19 07:30: Fasting Glucose 108, Triglycerides 51, Cholesterol 141, LDL Cholesterol Direct 88, HDL Cholesterol 42 02/20/19 20:45: Urine Opiates Screen Negative, Urine Methadone Screen Negative, Ur Barbiturates Screen Negative, Ur Phencyclidine Scrn Negative, Ur Amphetamines Screen Negative, U Benzodiazepines Scrn Negative, U Oth Cocaine Metabols Negative, U Cannabinoids Screen Positive H 02/20/19 20:00: Alcohol, Quantitative < 10 02/20/19 20:00: WBC 11.8 H, RBC 4.86, Hgb 15.1, Hct 45.6, MCV 93.8, MCH 31.1, MCHC 33.1, RDW 15.7 H, Plt Count 325, MPV 10.0 02/20/19 20:00: Sodium 142, Potassium 3.6, Chloride 105, Carbon Dioxide 26, Anion Gap 15, BUN 6 L, Creatinine 0.9, Est GFR ( Amer) > 60, Est GFR (Non-Af Amer) > 60, Random Glucose 115 H, Calcium 9.7, Total Bilirubin 0.5, AST 69 H, ALT 90 H, Alkaline Phosphatase 102, Total Protein 7.9, Albumin 4.4, Globulin 3.5, Albumin/Globulin Ratio 1.2 Vital Signs Temp Pulse Pulse Resp BP Pulse Ox 02/21/19 07:18 98.7 F 116 H 20 142/92 H 02/21/19 02:01 98.5 F 71 18 130/81 100 02/21/19 01:40 71 18 02/21/19 00:25 98.2 F 77 18 132/78 98 02/21/19 00:23 98.2 F 77 18 132/78 98 02/20/19 20:45 98.3 F 72 20 130/70 100 - Diagnosis (1) Unspecified psychosis Status: Acute Priority: High (2) Cannabis abuse Status: Chronic Priority: Medium - Final Diagnosis (DSM 5) Condition upon Discharge: STABLE DSM 5: r/o medication induced psychosis r/o delusional disorder Disposition: AGAINST MEDICAL ADVICE Follow-up Treatment Plan: At the time of the discharge patient was considered to pose NO imminent danger to self or others, will be following up at [facility] with , information about follow up appointment, time and address provided to the pt, (see SW note for more detailed information). It is a patient responsibility to follow up with outpatient clinic, PMD as well as specialists In case patient will need to obtain results of studies pending at discharge, patient was provided with contact information of Psychiatric Inpatient unit [phone] as well as Medical Record Department [phone], as well as [facility] team [phone]. pt denied smoking, denied drinking alcohol pt was advised to stop using marijuana and do not take any male enhance pills pt was provided with medications (meds to bed see medication reconciliation form) Pt was educated about safety plan in case of worsening of symptoms or in case of suicidal or homicidal ideation call 911 or go to the nearest ER, also was educated to take meds as prescribed and stay away from drugs, pt verbalized understanding. Prescriptions/Medication Reconciliation: Benztropine [Cogentin] 0.5 mg PO AMHS #30 tab risperiDONE [RisperDAL Tab] 2 mg PO AMHS #30 tab Zaleplon [Sonata] 5 mg PO HS PRN #14 cap PRN Reason: Insomnia - Smoking Cessation Smoking Cessation Medication prescribed: No Reason for not providing: pt denied smoking
== END 2019-02-26 17:12 | disposition left against medical advice (07) | DRG 885 ==
LOC: ED 19:19 → ERH 23:59 → PSYC 02-21 00:27
PROVIDERS: ADMIT Psychiatry & Neurology Psychiatry; ATTEND Psychiatry & Neurology Psychiatry
DX: F29 Unspecified psychosis not due to a substance or known physiological condition (principal); F12.10 Cannabis abuse, uncomplicated; F17.210 Nicotine dependence, cigarettes, uncomplicated; J45.909 Unspecified asthma, uncomplicated; Z53.20 Procedure and treatment not carried out because of patient's decision for unspecified reasons; F41.8 Other specified anxiety disorders; R07.9 Chest pain, unspecified; M94.0 Chondrocostal junction syndrome [Tietze]